=== PATIENT | male | born 1970 | race African-American/Black ===

== ENCOUNTER 2019-05-26 21:42 | Inpatient (IN) | payer MEDICAID, MEDICARE ==
[~2019-05-26] VITALS: Ht 162.6 cm; Wt 87.1 kg
--- NOTE | 2019-05-26 22:00 | NUR ---
Admitted a 49 y/o male from [facility]. Patient was placed on 5150 because he walked in front of patrol car and stopped infront of it, he urinated himself and undressed himself. And patient also stated that devil was talking too loud. Patient currently on 5250 hold but no original document presented. Patient agreed and signed voluntary hold. Patient admitting Dx. Psychosis. NKA. Upon face to face evaluation, patient appeared alert and oriented x 2-3, quiet, withdrawn, calm, cooperative, on and off smiling, admitted that he is seeing thing and denies hearing voices, patient wanted help for placement when discharged. Head to toe assessment done and pictures done. Explained the paper works and patient sign the consents. Informed of visiting hours and unit policies. Belongings and contraband checked. Q15 min checks initiated. Care plan started. Vital signs checked and recorded. Patient's rights discussed, guide to prescription meds handbook provided. Patient advised of the hold. Notified Dr. Miller of the admission. Will monitor patient for mood, safety and behavior. Will endorse to the day shift.
--- NOTE | 2019-05-26 22:30 | NUR ---
GPS RN NOTE: CN SPOKE TO NADER DHILLON FROM [facility] WHERE THE ORIGINAL COPY OF 5250 HOLD. PER NADER, DOCTOR TOOK IT AND THEY ONLY HAVE THE [place] COPY WHERE THEY CONSIDERED VALID. WILL FOLLOW UP IN AM
[2019-05-26] MEDS ORDERED: AMLO5TAB9 PO (22:51)
[2019-05-26] MEDS ORDERED: ATOR10TA PO (22:51)
[2019-05-26] MEDS ORDERED: FLUO-120 PO (22:52)
[2019-05-26] MEDS ORDERED: HYDR-500 PO (22:55)
[2019-05-26] MEDS ORDERED: RISP2TAB23 PO (22:56)
[2019-05-26] MEDS ORDERED: BLOOD SUGAR DIAGNOSTIC 1 EACH STRIP IN ONE (23:00)
[2019-05-26] MEDS ORDERED: ACETAMINOPHEN 325 MG TABLET PO PRN (23:00)
[2019-05-26] MEDS ORDERED: MAGNESIUM HYDROXIDE 30 ML UDC PO PRN (23:00)
[2019-05-26] MEDS ORDERED: MAG HYDROX/AL HYDROX/SIMETH 30 ML UDC PO PRN (23:00)
[2019-05-26 23:35] VITALS: BP 159/90
--- NOTE | 2019-05-26 23:48 | NUR ---
GPS RN NOTE, PATIENT VITAL SIGNS ARE FOLLOWS B/P 159/90, PULSE 67, RES 18, TEMP 98.1, SPO2 99%. PATIENT ALSO NEEDS HIS MED RECON APPROVED. PAGED [facility] AND INFORMED DR TALAVERA OF MY FINDINGS. DR TALAVERA ORDERED LISINOPRIL 20 MG PO ONCE AND HE WILL DO PATIENTS MEDICATION RECONCILIATION. ALL ORDERS NOTED AND CARRIED OUT WILL CONTINUE TO MONITOR THIS PATIENT.
[2019-05-27] MEDS ORDERED: LISINOPRIL (20MG) 20 MG TABLET PO ONE
[2019-05-27] MEDS: TEMAZEPAM 7.5 MG CAPSULE PO PRN ×2 (00:02→21:13)
[2019-05-27 07:32] LABS: BASOPHILS % (AUTO) 0.8 % (0.0-2.0); EOSINOPHILS % (AUTO) 1.9 % (0.0-6.0); HEMATOCRIT 38 % (39-51); HEMOGLOBIN 12.7 g/dL (13.5-17.5); LYMPHOCYTES # (AUTO) 1.7 /CMM (0.8-4.8); LYMPHOCYTES % (AUTO) 32.1 % (20.0-44.0); MEAN CORPUSCULAR HGB CONC 34 g/dl (31.0-36.0); MEAN CORPUSCULAR VOLUME 88 fL (80-96); MONOCYTES # (AUTO) 0.8 /CMM (0.1-1.30); MONOCYTES % (AUTO) 14.1 % (2.0-12.0); NEUTROPHILS # (AUTO) 2.8 /CMM (1.8-8.9); NEUTROPHILS % (AUTO) 51.1 % (43.0-81.0); PLATELET COUNT (AUTO) 347 /CMM (150-450); RED BLOOD CELL COUNT(AUTO) 4.27 MIL/uL (4.5-6.0); WHITE BLOOD COUNT (AUTO) 5.4 K/uL (4.3-11.0)
[2019-05-27 07:40] LABS: CALCIUM, SERUM 8.8 mg/dL (8.5-10.1); POTASSIUM 3.7 mmol/L (3.5-5.1)
[2019-05-27 08:00] VITALS: BP 156/96
--- NOTE | 2019-05-27 10:33 | NUR ---
Initial Discharge Plan: Per hold, the patient is experiencing homelessness. Patient could not provide SW with information on living circumstance or point of contact. The patient will need placement once ready for discharge. FRANKLYN and Pinky ESTES will continue to collaborate with interdisciplinary team to ensure safe and proper discharge planning.
--- NOTE | 2019-05-27 11:11 | NUR ---
GPS RN NOTES PATIENT SEEN AND EXAMINED BY DR GODOY. AWARE OF PATIENT'S VITAL SIGNS. WITH NEW ORDERS NOTED AND CARRIED OUT. WILL CONTINUE TO MONITOR
[2019-05-27 16:00] VITALS: BP 148/98
--- NOTE | 2019-05-27 16:27 | NUR ---
Group Note 05/27/19: SW approached patient in the activities room to invite them to attend today's support group at 2 pm in the activities room regarding mindfulness. However, patient is not a good candidate to participate in group as he continues to pace and respond to internal stimuli. Pt. did not attend session. SW will invite patient to next group session
[2019-05-27 20:35] VITALS: BP 152/87
[2019-05-27] MEDS: DIVALPROEX SODIUM 125 MG CAP.SPRINK PO SCH (21:13)
[2019-05-27] MEDS: OLANZAPINE 2.5 MG TABLET PO SCH (21:13)
[2019-05-28 07:09] LABS: BASOPHILS % (AUTO) 0.8 % (0.0-2.0); EOSINOPHILS % (AUTO) 2.4 % (0.0-6.0); HEMATOCRIT 38 % (39-51); HEMOGLOBIN 12.7 g/dL (13.5-17.5); LYMPHOCYTES # (AUTO) 1.8 /CMM (0.8-4.8); LYMPHOCYTES % (AUTO) 29.2 % (20.0-44.0); MEAN CORPUSCULAR HGB CONC 34 g/dl (31.0-36.0); MEAN CORPUSCULAR VOLUME 88 fL (80-96); MONOCYTES # (AUTO) 0.8 /CMM (0.1-1.30); MONOCYTES % (AUTO) 12.4 % (2.0-12.0); NEUTROPHILS # (AUTO) 3.4 /CMM (1.8-8.9); NEUTROPHILS % (AUTO) 55.2 % (43.0-81.0); PLATELET COUNT (AUTO) 349 /CMM (150-450); WHITE BLOOD COUNT (AUTO) 6.2 K/uL (4.3-11.0)
[2019-05-28 07:31] LABS: ALBUMIN 3.4 g/dL (3.4-5.0); BILIRUBIN,TOTAL 0.3 mg/dL (0.2-1.0); CALCIUM, SERUM 9.4 mg/dL (8.5-10.1); POTASSIUM 3.8 mmol/L (3.5-5.1)
[2019-05-28 08:00] VITALS: BP 142/87
[2019-05-28] MEDS: OLANZAPINE 2.5 MG TABLET PO SCH ×2 (08:07→17:51)
[2019-05-28] MEDS: DIVALPROEX SODIUM 125 MG CAP.SPRINK PO SCH ×2 (08:07→13:11)
[2019-05-28] MEDS: AMLODIPINE BESYLATE 5 MG TABLET PO SCH (08:15)
[2019-05-28] MEDS: ATORVASTATIN 10 MG TABLET PO SCH (08:16)
--- NOTE | 2019-05-28 15:24 | NUR ---
GROUP NOTE: SW encouraged pt to attend group on this present day to discuss "impaired reality-testing." Pt was unable to attend due to being present at his PC hearing.
[2019-05-28 16:00] VITALS: BP 149/71
[2019-05-28] MEDS: DIVALPROEX SODIUM 500 MG TABLET.DR PO SCH (17:34)
--- NOTE | 2019-05-28 19:30 | NUR ---
GPS RN NOTE, RECEIVED PATIENT AWAKE AND IN BED, NO S/S OR COMPLAINTS OF PAIN AT THIS TIME. PATIENT IS DISPLAYING NO S/S OF APPARENT DISTRESS AT THIS TIME. PATIENT BREATHING IS UNLABORED WITH EQUAL RISE AND FALL OF THE CHEST. PATIENT IS ALERT AND ORIENTED X 2-3 ON ROOM AIR WITH A SPO2 97 %. PATIENT IS COMPLIANT WITH MEDICATION, DISORGANIZED, RESPONDING TO INTERNAL STIMULI, ANXIOUS, AND COOPERATIVE. PATIENT DENIES SUICIDE IDEATIONS AND HOMICIDAL IDEATIONS AT THIS TIME. PATIENT ASSISTED WITH TURNING AND REPOSITIONING Q2 HR AND PRN FOR COMFORT AND CIRCULATION. PATIENT HAS NO NEEDS AT THIS TIME. PATIENT EDUCATED ON THE USE OF THE CALL CLARKE. PATIENT BED SIDE RAILS UP X 2 FOR SAFETY, BED IS LOCKED AND LOW. WILL CONTINUE TO MONITOR Q15 MIN WITH THE HELP OF STAFF TO MAINTAIN SAFETY.
[2019-05-28 19:53] VITALS: BP 154/100
[2019-05-28] MEDS: LORAZEPAM 0.5 MG TABLET PO PRN (21:10)
--- NOTE | 2019-05-28 21:10 | NUR ---
GPS RN NOTE, PATIENT HAS A COMPLAINT OF FEELING ANXIOUS AND IS REQUESTING ATIVAN AT THIS TIME. PATIENT VITAL SIGNS ARE STABLE. GAVE ATIVAN 0.5MG PO Q6HR PRN ORDERED. WILL REASSESS FOR ANXIETY AND I WILL CONTINUE TO MONITOR THIS PATIENT.
[2019-05-28] MEDS: TEMAZEPAM 7.5 MG CAPSULE PO PRN (21:54)
--- NOTE | 2019-05-28 21:54 | NUR ---
GPS RN NOTE, PATIENT HAS A COMPLAINT OF NOT BEING ABLE TO SLEEP AND IS REQUESTING RESTORIL AT THIS TIME. PATIENT VITAL SIGNS ARE STABLE. GAVE RESTORIL 7.5MG PO HS ORDERED. WILL REASSESS FOR INSOMNIA AND I WILL CONTINUE TO MONITOR THIS PATIENT.
[2019-05-29 08:00] VITALS: BP 129/88
[2019-05-29] MEDS: AMLODIPINE BESYLATE 5 MG TABLET PO SCH (08:27)
[2019-05-29] MEDS: OLANZAPINE 2.5 MG TABLET PO SCH ×2 (08:27→17:16)
[2019-05-29] MEDS: DIVALPROEX SODIUM 125 MG CAP.SPRINK PO SCH ×2 (08:28→12:14)
[2019-05-29] MEDS: ATORVASTATIN 10 MG TABLET PO SCH (08:28)
[2019-05-29 16:00] VITALS: BP 139/78
[2019-05-29] MEDS: DIVALPROEX SODIUM 500 MG TABLET.DR PO SCH (17:16)
[2019-05-29 19:44] VITALS: BP 154/106
[2019-05-29] MEDS: LORAZEPAM 0.5 MG TABLET PO PRN (20:47)
[2019-05-30] MEDS: TEMAZEPAM 7.5 MG CAPSULE PO PRN ×2 (00:16→20:35)
[2019-05-30] MEDS: LORAZEPAM 0.5 MG TABLET PO PRN (02:48)
[2019-05-30 08:00] VITALS: BP 149/91
[2019-05-30] MEDS: ATORVASTATIN 10 MG TABLET PO SCH (08:16)
[2019-05-30] MEDS: OLANZAPINE 2.5 MG TABLET PO SCH ×2 (08:16→17:14)
[2019-05-30] MEDS: AMLODIPINE BESYLATE 5 MG TABLET PO SCH (08:16)
[2019-05-30] MEDS: DIVALPROEX SODIUM 125 MG CAP.SPRINK PO SCH ×2 (08:16→12:40)
[2019-05-30 15:54] VITALS: BP 153/86
[2019-05-30] MEDS: DIVALPROEX SODIUM 500 MG TABLET.DR PO SCH (17:14)
[2019-05-30 19:39] VITALS: BP 155/94
--- NOTE | 2019-05-30 20:25 | NUR ---
Patient is confused and disoriented. Thought process disorganized, non-sensical at times. patient is a high risk for assault to staff and patient. Impulsive with blunted affect.Bizarre at times. Compliant with medication.
[2019-05-31] MEDS: LORAZEPAM 0.5 MG TABLET PO PRN (00:38)
[2019-05-31 08:00] VITALS: BP 158/79
[2019-05-31] MEDS: ATORVASTATIN 10 MG TABLET PO SCH (08:55)
[2019-05-31] MEDS: OLANZAPINE 2.5 MG TABLET PO SCH ×2 (08:55→13:16)
[2019-05-31] MEDS: DIVALPROEX SODIUM 125 MG CAP.SPRINK PO SCH ×2 (08:56→13:15)
[2019-05-31] MEDS: AMLODIPINE BESYLATE 5 MG TABLET PO SCH (08:56)
[2019-05-31] MEDS ORDERED: OLANZAPINE 2.5 MG TABLET PO SCH (13:00)
[2019-05-31 16:00] VITALS: BP 159/97
[2019-05-31] MEDS ORDERED: DIVALPROEX SODIUM 500 MG TABLET.DR PO SCH (17:00)
[2019-05-31] MEDS: DIVALPROEX SODIUM 250 MG TABLET.DR PO SCH (17:01)
[2019-05-31 20:01] VITALS: BP 150/103
[2019-05-31] MEDS ORDERED: OLANZAPINE 10 MG TABLET PO SCH (22:00)
--- NOTE | 2019-06-01 03:55 | NUR ---
PT OFFERED MEDICATION TO HELP WITH SLEEP, PT REFUSED EVERYTIME IT WAS OFFERED.
[2019-06-01 08:00] VITALS: BP 153/89
[2019-06-01] MEDS: ATORVASTATIN 10 MG TABLET PO SCH (08:43)
[2019-06-01] MEDS: AMLODIPINE BESYLATE 5 MG TABLET PO SCH (08:43)
[2019-06-01] MEDS: DIVALPROEX SODIUM 125 MG CAP.SPRINK PO SCH ×2 (08:43→12:25)
[2019-06-01] MEDS: OLANZAPINE 2.5 MG TABLET PO SCH ×2 (08:44→12:26)
--- NOTE | 2019-06-01 09:35 | NUR ---
SNF REFERRAL: FRANKLYN faxed SNF referral to JR, admissions assistant at [facility] Address: [address] [place] [address] for review.
--- NOTE | 2019-06-01 15:35 | NUR ---
Group Npte: SW encouraged pt to participate in group on 06/01/19 at 2pm discussing discharge planning. Pt stated that he hears voices and appeared to be responding to internal stimuli. 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
[2019-06-01 16:00] VITALS: BP 120/51
[2019-06-01] MEDS: DIVALPROEX SODIUM 250 MG TABLET.DR PO SCH (16:45)
[2019-06-01 20:13] VITALS: BP 142/85
[2019-06-01] MEDS: TEMAZEPAM 7.5 MG CAPSULE PO PRN (21:24)
[2019-06-01] MEDS ORDERED: OLANZAPINE 5 MG/TAB.RAPDIS PO SCH (22:00)
[2019-06-01] MEDS: LORAZEPAM 0.5 MG TABLET PO PRN (22:40)
[2019-06-02 07:07] LABS: BASOPHILS % (AUTO) 0.6 % (0.0-2.0); EOSINOPHILS % (AUTO) 3.2 % (0.0-6.0); HEMATOCRIT 37 % (39-51); HEMOGLOBIN 12.4 g/dL (13.5-17.5); LYMPHOCYTES # (AUTO) 1.7 /CMM (0.8-4.8); MEAN CORPUSCULAR HGB CONC 33 g/dl (31.0-36.0); MEAN CORPUSCULAR VOLUME 89 fL (80-96); MONOCYTES # (AUTO) 0.6 /CMM (0.1-1.30); MONOCYTES % (AUTO) 12.3 % (2.0-12.0); NEUTROPHILS # (AUTO) 2.6 /CMM (1.8-8.9); NEUTROPHILS % (AUTO) 50.9 % (43.0-81.0); PLATELET COUNT (AUTO) 358 /CMM (150-450); RED BLOOD CELL COUNT(AUTO) 4.18 MIL/uL (4.5-6.0); WHITE BLOOD COUNT (AUTO) 5.1 K/uL (4.3-11.0)
[2019-06-02 08:00] VITALS: BP 135/95
[2019-06-02 08:07] LABS: ALBUMIN 3.3 g/dL (3.4-5.0); BILIRUBIN,TOTAL 0.3 mg/dL (0.2-1.0); POTASSIUM 4.2 mmol/L (3.5-5.1); TOTAL PROTEIN, SERUM 6.7 g/dL (6.4-8.2)
[2019-06-02] MEDS: ATORVASTATIN 10 MG TABLET PO SCH (08:46)
[2019-06-02] MEDS: OLANZAPINE 5 MG/TAB.RAPDIS PO SCH ×2 (08:46→21:20)
[2019-06-02] MEDS: DIVALPROEX SODIUM 125 MG CAP.SPRINK PO SCH ×2 (08:46→12:19)
[2019-06-02] MEDS: AMLODIPINE BESYLATE 5 MG TABLET PO SCH (08:46)
--- NOTE | 2019-06-02 11:29 | NUR ---
SW received a call from JR, mortgage coordinator at [facility] Address: [address] [place] [address] stating that pt has been approved to the facility.
--- NOTE | 2019-06-02 11:46 | NUR ---
FRANKLYN faxed SNF referral to [facility] Address: [address] [facility], [place] [address] for review.
--- NOTE | 2019-06-02 12:00 | NUR ---
SW received a call from Shelia, customer relations coordinator at [facility] Address: [address] [facility], [place] [address] stating pt has been accepted to the facility.
--- NOTE | 2019-06-02 15:28 | NUR ---
GROUP NOTE: SW encouraged pt to participate in group on this present day discussing "discharge planning." Pt agreed to go to a SNF but continues to respond to internal stimuli. Pt did not make eye contact and was looking down at the floor when speaking to SW.
[2019-06-02 16:00] VITALS: BP 141/84
[2019-06-02] MEDS: DIVALPROEX SODIUM 250 MG TABLET.DR PO SCH (16:38)
[2019-06-02 20:08] VITALS: BP 154/74
[2019-06-02 20:10] VITALS: BP 117/69
[2019-06-02] MEDS: LORAZEPAM 0.5 MG TABLET PO PRN (20:34)
[2019-06-02] MEDS: TEMAZEPAM 7.5 MG CAPSULE PO PRN (22:00)
[2019-06-03 08:00] VITALS: BP 139/89
[2019-06-03] MEDS: ATORVASTATIN 10 MG TABLET PO SCH (08:54)
[2019-06-03] MEDS: DIVALPROEX SODIUM 125 MG CAP.SPRINK PO SCH ×2 (08:54→12:44)
[2019-06-03] MEDS: OLANZAPINE 5 MG/TAB.RAPDIS PO SCH ×2 (08:54→21:40)
[2019-06-03] MEDS: AMLODIPINE BESYLATE 5 MG TABLET PO SCH (08:55)
--- NOTE | 2019-06-03 14:25 | NUR ---
FRANKLYN met with Bettina Jordan [facility] Community Health Worker [phone] who informed SW that pt was recently released from longterm in November and stated that pt is currently on Probation and has a Pole Tester by the name Officer Vannesa [id number] . Per Bettina, she stated that she is unsure if pt will be in violation of his Probation if he is discharged to a SNF. FRANKLYN informed her that pt is agreeing to go to a SNF and will follow up with pts PO to inform him of discharge plan. Bettina stated that if pt is unable to be discharged to a SNF due to his probation she will assist with placing him in housing once discharged. Bettina also met with pts psychiatrist Dr. Miller and discussed pts medications and treatment plan. Addendum: 06/03/19 at 1434 by MAX ESTES Bettina Jordan [facility] Community Health Worker Whole Person Care Program [phone]
--- NOTE | 2019-06-03 14:32 | NUR ---
FRANKLYN contacted Brand Sales Manager Vannesa ABRosita [phone] and left a voicemail for callback.
[2019-06-03 16:00] VITALS: BP 135/74
[2019-06-03] MEDS ORDERED: DIVALPROEX SODIUM 250 MG TABLET.DR PO SCH (17:00)
--- NOTE | 2019-06-03 19:57 | NUR ---
RN OPENING NOTES PATIENT WALKING AROUND WITH STEADY GAIT, ALERT AND ORIENTED X 3, PARANOID AND TALK VERY SLOWLY. NO COMPLAINT OF PAIN OR DISCOMFORT. DENIES SUICIDAL IDEATION OF THIS TIME. EDUCATION GIVEN ON THE USE OF CALL LIGHT. BILATERAL UPPER SIDERAILS UP, LOCK AND AT LOWEST POSITION FOR SAFETY. WANTS SLEEPING PILLS AT 2100. COOPERATIVE. WILL CONTINUE TO MONITOR.
[2019-06-03 20:09] VITALS: BP 161/82
[2019-06-04 08:00] VITALS: BP 125/92
[2019-06-04] MEDS: ATORVASTATIN 10 MG TABLET PO SCH (08:30)
[2019-06-04] MEDS: AMLODIPINE BESYLATE 5 MG TABLET PO SCH (08:30)
[2019-06-04] MEDS: OLANZAPINE 5 MG/TAB.RAPDIS PO SCH (08:30)
[2019-06-04] MEDS: DIVALPROEX SODIUM 125 MG CAP.SPRINK PO SCH ×2 (08:30→12:25)
[2019-06-04] MEDS: risperiDONE-M 0.5 MG TAB.RAPDIS PO SCH ×2 (13:35→20:20)
[2019-06-04 15:57] VITALS: BP 131/75
--- NOTE | 2019-06-04 19:32 | NUR ---
GPS/RN OPENING NOTES PATIENT IN BED , BEHAVIOR ISOLATIVE, ABLE TO DISTRACT SELF BY READING AND ABLE TO WALK AND TALK TO SELF. WILL MONITOR. RECEIVED ENDORSEMENT FROM AM RN FOR ANDREW.
[2019-06-04 19:54] VITALS: BP 126/73
--- NOTE | 2019-06-04 19:59 | NUR ---
GPS/RN NOTES PATIENT REQUESTED FOR SOME SNACKS. ABLE TO EAT AND TOLERATED WELL.
[2019-06-04 20:05] VITALS: BP 126/73
[2019-06-04] MEDS ORDERED: OLANZAPINE 5 MG/TAB.RAPDIS PO SCH (22:00)
[2019-06-05] MEDS: TEMAZEPAM 7.5 MG CAPSULE PO PRN (00:05)
--- NOTE | 2019-06-05 00:05 | NUR ---
GPS/RN NOTES PATIENT WIDE AWAKE, KEPT SELF PREOCCUPIED IN ROOM , REQUESTED FOR MEDICATION FOR SLEEP, WILL MONITOR.
[2019-06-05 08:00] VITALS: BP 136/87
[2019-06-05] MEDS: OLANZAPINE 5 MG/TAB.RAPDIS PO SCH ×2 (08:26→21:28)
[2019-06-05] MEDS: risperiDONE-M 0.5 MG TAB.RAPDIS PO SCH ×2 (08:26→14:59)
[2019-06-05] MEDS: ATORVASTATIN 10 MG TABLET PO SCH (08:26)
[2019-06-05] MEDS: AMLODIPINE BESYLATE 5 MG TABLET PO SCH (08:26)
[2019-06-05] MEDS ORDERED: DIVALPROEX SODIUM 125 MG CAP.SPRINK PO SCH (09:00)
--- NOTE | 2019-06-05 14:30 | NUR ---
dr. olvera in and discussed med regimen with pt.and he decided at this time not to sign med consent. Addendum: 06/05/19 at 1748 by GEORGE WHITMAN RN above info on incorrect pt.
[2019-06-05 16:00] VITALS: BP 133/86
--- NOTE | 2019-06-05 17:13 | NUR ---
quiet and cooperative.reluctant to take any meds-says he is worried about seizures. Addendum: 06/05/19 at 1749 by GEORGE WHITMAN RN above info on incorrect pt.
--- NOTE | 2019-06-05 17:49 | NUR ---
pt. med compliant,cooperative,pleasant.
[2019-06-05 19:59] VITALS: BP 135/83
[2019-06-05] MEDS ORDERED: risperiDONE 1 MG TABLET PO SCH (20:00)
--- NOTE | 2019-06-06 01:00 | NUR ---
GPS RN NOTE: PATIENT NOTED WITH ON AND OFF SLEEP, PATIENT IS CALM AND QUIET IN HIS ROOM. OFFERED SLEEPING PILL X 3 ATTEMPTS BUT PATIENT REFUSED, EXPLAINED THE RISK AND BENEFITS BUT PATIENT STATED "IM GONNA BE ABLE TO SLEEP LATER". WILL CONTINUE TO MONITOR Q15 MINS FOR SAFETY
[2019-06-06 08:00] VITALS: BP 138/75
[2019-06-06] MEDS: AMLODIPINE BESYLATE 5 MG TABLET PO SCH (08:29)
[2019-06-06] MEDS: ATORVASTATIN 10 MG TABLET PO SCH (08:29)
[2019-06-06] MEDS: OLANZAPINE 5 MG/TAB.RAPDIS PO SCH ×2 (08:29→21:10)
[2019-06-06] MEDS: risperiDONE-M 0.5 MG TAB.RAPDIS PO SCH ×3 (08:29→17:45)
[2019-06-06 16:00] VITALS: BP 137/80
[2019-06-06 20:00] VITALS: BP 145/87
[2019-06-06 20:21] VITALS: BP 145/87
[2019-06-06] MEDS: risperiDONE 1 MG TABLET PO SCH (20:25)
--- NOTE | 2019-06-06 23:37 | NUR ---
GPS RN notes Pt refused weekly skin assessment and pictures taken. Made aware the benefits of weekly skin assessment. Pt keep refusing. Will continue to monitor
[2019-06-07 08:00] VITALS: BP 137/87
[2019-06-07] MEDS: risperiDONE-M 0.5 MG TAB.RAPDIS PO SCH ×3 (08:21→17:32)
[2019-06-07] MEDS: ATORVASTATIN 10 MG TABLET PO SCH (08:22)
[2019-06-07] MEDS: AMLODIPINE BESYLATE 5 MG TABLET PO SCH (08:22)
[2019-06-07] MEDS: OLANZAPINE 5 MG/TAB.RAPDIS PO SCH ×2 (08:22→20:57)
--- NOTE | 2019-06-07 15:00 | NUR ---
GROUP NOTE: SW encouraged pt to participate in group therapy on this present day discussing "discharge planning." Pt refused to attend stating he wanted to stay in his room.
[2019-06-07 16:19] VITALS: BP 109/53
[2019-06-07] MEDS: LORAZEPAM 0.5 MG TABLET PO PRN (19:54)
[2019-06-07] MEDS: TEMAZEPAM 7.5 MG CAPSULE PO PRN (20:57)
[2019-06-07] MEDS: risperiDONE 1 MG TABLET PO SCH (20:57)
[2019-06-07 21:07] VITALS: BP 146/75
[2019-06-08 08:00] VITALS: BP 112/64
[2019-06-08] MEDS: AMLODIPINE BESYLATE 5 MG TABLET PO SCH (08:52)
[2019-06-08] MEDS: ATORVASTATIN 10 MG TABLET PO SCH (08:52)
[2019-06-08] MEDS ORDERED: INVEGA SUSTENNA 234 MG ONE (09:00)
--- NOTE | 2019-06-08 10:14 | NUR ---
FRANKLYN contacted Bettina Jordan, [facility] Community Health Worker [phone] and left a voicemail informing her pt will be discharging tomorrow Friday06/09/19 to [facility].
--- NOTE | 2019-06-08 10:16 | NUR ---
FRANKLYN contacted Over Short And Damage Clerk Vannesa [id number] and left a voicemail informing him pt will be discharged tomorrow Friday to [facility].
--- NOTE | 2019-06-08 15:09 | NUR ---
INTERVENTION: SW discussed pts discharge plan, pt stated that his case coordinator informed him that she wanted him to be discharged to the [facility]. SW informed him that pts discharge plan was for him to be [facility] a jail facility. SW informed him that once pt is at the SNF pt can coordinate with his case coordinator regarding intermediate teacher placement. Pt agreed and agreed to be discharged tomorrow Friday06/09/19 to a SNF.
[2019-06-08 16:00] VITALS: BP 147/85
[2019-06-08] MEDS: LORAZEPAM 0.5 MG TABLET PO PRN ×2 (17:16→20:14)
--- NOTE | 2019-06-08 17:18 | NUR ---
GPS/RN-NOTES NOTED PATIENT PACING IN AND OUT THE ROOM TO THE DAY ROOM. OFFERED ATIVAN AND AGREES. ATIVAN 0.5MG P.O GIVEN PRN ORDER. WILL CONT. MONITORING FOR SAFETY AND BEHAVIOR.
[2019-06-08] MEDS: risperiDONE 1 MG TABLET PO SCH (17:56)
[2019-06-08 20:26] VITALS: BP 152/83
[2019-06-08] MEDS: TEMAZEPAM 7.5 MG CAPSULE PO PRN (21:17)
[2019-06-09 08:00] VITALS: BP 141/90
[2019-06-09 08:28] VITALS: BP 141/90
[2019-06-09] MEDS: AMLODIPINE BESYLATE 5 MG TABLET PO SCH (08:28)
[2019-06-09] MEDS: ATORVASTATIN 10 MG TABLET PO SCH (08:28)
[2019-06-09] MEDS: risperiDONE 1 MG TABLET PO SCH (08:28)
--- NOTE | 2019-06-09 10:30 | NUR ---
Intervention: SW discussed pts discharge plan as pt is refusing to be discharged on this present day to a SNF stating he wants to be given tokens and discharge to his "home." SW explained that due to him being on probation he needs a safe discharge and discharging him to the streets is not an option as he would be in violation of his probation. Pt then began making delusional statements and said that his aunt paid the police to [facility] and that is why he is here. SW assured him that she would figure out a safe discharge plan for him and will be contacting Bettina Jordan [facility] Community Health Worker [phone] to assist with placement and discharge. Pt agreed.
--- NOTE | 2019-06-09 11:17 | NUR ---
FRANKLYN contacted Bettina Jordan, [facility] Community Health Worker [phone] and informed her pt is refusing to be discharged on this present day to the SNF. Bettina asked to speak with pt and convinced him to discharge to temporary housing in [facility]. Pt agreed. Bettina informed FRANKLYN that she will be submitting an application for emergency housing at the [facility] Address: [address] [place] [id number] and stated she would have housing for him by tomorrow 06/10/19 or Friday06/11/19. FRANKLYN will call Bettina tomorrow 06/10/19 to follow up.
--- NOTE | 2019-06-09 12:00 | NUR ---
INTERVENTION: SW and psychiatrist Dr. Carter spoke with pt to reevaluate for 30day hold, based on Dr. Carter's evaluation pt does not meet criteria for a 30day hold, as pt is denying suicidal/homicidal ideation, denying visual/auditory hallucinations, is not displaying acute symptoms of psychosis, and is alert and oriented x4. Pt is also refusing to sign voluntary and work with [facility] case coordinator and sated he wants to be discharged to the streets. Pt stated that if he is not discharged he will file for a WRITE Hearing and requested to be discharged AMA. Pt will be discharged AMA on this present day.
--- NOTE | 2019-06-09 12:40 | NUR ---
FRANKLYN contacted Bettina Jordan, [facility] Community Health Worker [phone] and informed her pt is being discharged AMA on this present day due to him no longer meeting criteria for a 30 day hold and also refusing to sign voluntary and work with case technician and FRANKLYN. FRANKLYN informed her that pt is refusing all placement and stated that he wants to be discharged to the streets. Bettina sated that she would connect with pt on the streets as she is aware of pts location of dwelling.
--- NOTE | 2019-06-09 12:42 | NUR ---
FRANKLYN contacted [employer] Vannesa [id number] and left a voicemail informing him pt will be discharged AMA on this present day and will be discharging back to the streets.
--- NOTE | 2019-06-09 12:54 | NUR ---
AMA DISCHARGE: Pt refused SNF placement and also refused to work with [facility] community case supervisor for placement. Pt requested he be discharged to the streets. Pt reported that his place of dwelling is in [facility] on [address] [place]. Pt also refused to accept homeless resource and substance abuse resources stating he already knew of all the resources there is available for him. Pt denied suicidal/homicidal ideation and denied visual/auditory hallucinations. Pts mood is anxious with flat affect.
[2019-06-09] MEDS ORDERED: OLANZAPINE 2.5 MG TABLET PO SCH (13:00)
--- NOTE | 2019-06-09 15:05 | NUR ---
ADVERTISING ANALYST NOTE: PATIENT IS A 49 YEAR OLD MALE LEFT [facility] GPS AMA. EDUCATED THE PATIENT ON THE IMPORTANCE OF COMPLYING WITH PSYCHIATRIST'S PLAN OF CARE BUT PATIENT REFUSES TO COOPERATE. PATIENT IS IN STABLE CONDITION. VSS. NO ACUTE DISTRESS NOTED. NO COMPLAINTS. COMPLIANT WITH MEDICATION MANAGEMENT. DENIES SI/HI VAH AT THE TIME OF DISCHARGE. WOUND PICTURES TAKEN AND DOCUMENTED IN CHART. PATIENT REFUSED TO SIGN DC PAPERWORK. AMA PAPERWORK SIGNED AND PLACED IN CHART. PATIENT DOES NOT WANT ANY PAPERWORK GIVEN TO HIM. PATIENT REFUSED RESOURCES PROVIDED BY INJECTION MOLD TECHNICIAN. RETURNED PERSONAL BELONGINGS TO PATIENT. DR CHAMBERLAIN AWARE OF THE AMA. INFORMED PATIENT TO FOLLOW UP WITH PSYCHIATRIST AND TECHNICIAN [employer]QUIPMENT KAYKAY. PATIENT LEFT [facility] GPS @ 6621.
--- NOTE | 2019-06-24 09:31 | NUR ---
15 DAY SUBSTANCE ABUSE FOLLOW UP: unable to follow up due to pt having no phone.
== END 2019-06-09 14:02 | disposition left against medical advice (07) | DRG 885 ==
LOC: GPS 21:42 → EDBD 21:42 → GPS 05-29 14:30
PROVIDERS: ADMIT Psychiatry & Neurology Psychosomatic Medicine; ATTEND Family Medicine
DX: F20.0 Paranoid schizophrenia (principal); F23 Brief psychotic disorder; F19.10 Other psychoactive substance abuse, uncomplicated; I10 Essential (primary) hypertension; D63.8 Anemia in other chronic diseases classified elsewhere; G47.00 Insomnia, unspecified; E66.9 Obesity, unspecified; Z68.33 Body mass index [BMI] 33.0-33.9, adult; E78.5 Hyperlipidemia, unspecified; Z59.0 Homelessness
CPT/HCPCS: 36415; 80048-TC; 80053-TC; 80061-TC; 80164-TC; 82550-TC; 82962-TC; 85025-TC; 87081-TC